=== PATIENT | male | born 1955 | race Caucasian/White ===

== ENCOUNTER → 2016-04-06 | Day surgery (SDC) | payer BC ==
[2016-03-25 11:55] VITALS: Ht 180.3 cm; Wt 134.1 kg
[~2016-04-06] VITALS: Ht 180.3 cm; Wt 134.1 kg
[~2016-04-06] MED LIST: ACT30 PO; ASPCH81X PO; ATOR10TA88 PO; ATROPINE SULFATE 0.1 MG/ML 5ML SYR IV PRN; BUPRTAB51 PO; CANA1TAB3 PO; CEFAZOLIN 2000 MG/60 ML D5W IV SCH; CEFAZOLIN SOD 1 GM VIAL ONE; CEPH500C2 PO; EpHEDrine SULFATE INJ 50 MG/ML AMP IV PRN; FENTANYL CITRATE INJ 50 MCG/1 ML 2 ML VIAL IV PRN; FENTANYL CITRATE INJ 50 MCG/1 ML 2 ML VIAL ONE; HYDR-5688 PO; HYDROCODONE/ACETAMOPHEN 5/325MG TAB PO PRN; HYZ/10015 PO; LACTATED RINGER'S 1000ML 1,000 ML IV SCH; LIDOCAINE HCL 1% 20 ML VIAL ONE; LIDOCAINE HCL 2% 2 ML VIAL (20MG/ML) ONE; LIRA18IN SC; MIDAZOLAM HCL 1 MG/ML 2ML VIAL ONE; ONDANSETRON INJ 2 MG/ML 2 ML VIAL IV PRN; PROPOFOL IV EMULSION 10 MG/ML 20 ML VIAL IV ONE; SERT-234 PO; SODIUM CHLORIDE 0.9% 1000ML 1,000 ML IV SCH; TEMA30CA4 PO
--- NOTE | 2016-04-06 07:54 | History & Physical Bridge - SC ---
H&P Re-Evaluation Bridge Note: I have examined the patient, reviewed the History & Physical and in the interval since the performance of the History & Physical I have noted the following changes of clinical significance: No changes noted ASA 3
--- NOTE | 2016-04-06 09:26 | [facility] Post Operative Brief Note ---
Immediate Operative Summary Operative Date Apr 06, 2016. Pre-Operative Diagnosis Umbilical suture sinus Post-Operative Diagnosis same Procedure(s) Performed Umbilicus Suture Sinus Excision, excision suture foreign body Surgeon Dr Madrid Equipment Monitor Phototypesetting Surgeon(s) 0 Estimated Blood Loss 5 ml Findings 2 prolene sutures Specimens 0 Anesthesia local/ sedation Complication(s) None Disposition Recovery Room / PACU
[2016-04-06 09:28] VITALS: TEMP 36.7
--- NOTE | 2016-04-06 09:28 | Discharge Instructions-SurgCtr ---
Discharge Instructions Visit Reason for Visit: Umbilical Suture Sinus Discharge Discharge Diagnosis / Problem: suture sinus Discharge Goals Goal(s): Decrease discomfort, Improve function, Improve disease control Medications Stopped Medications Name(s): asa stopped about 2 weeks ago. Activity Recommendations Activity Limitations: as noted below Lifting Limitations: no more than 25 pounds (for one week) Exercise/Sports Limitations: until after follow-up appointment May Resume Sexual Activity: when tolerated Shower/Bathe: tomorrow Driving or Machine Use: resume 1 day after discharge SPECIAL CARE INSTRUCTIONS: * Cover incisions and change daily for comfort/drainage. * May use ibuprofen for pain as tolerated. * Expect some swelling and bruising. Call your doctor if: * Temperature above 101 degrees * Pain not relieved by pain medicine ordered * There is increased drainage or redness from any incision * You have any unanswered questions or concerns [phone]. FOLLOW UP VISIT: If not already scheduled, please call the office for a follow-up visit. for next week- some suture removal OFFICE PHONE NUMBER: Dr. Madrid Office Anesthesia . Post Anesthesia Instructions: If you have had General Anesthesia or IV Sedation: * Do not drive today. * Resume driving when surgeon permits. * Do not make important decisions or sign legal documents today. * Call surgeon for: 1. Temperature elevations greater than 101 degrees F. 2. Uncontrollable pain. 3. Excessive bleeding. 4. Persistent nausea and vomiting. 5. Medication intolerance (nausea, vomiting or rash). * For nausea and vomiting use only clear liquids such as: tea, soda, bouillon until nausea subsides, then gradually increase diet as tolerated. * If you have any concerns or questions, call your surgeon's office. If physician is unavailable and it is an emergency, call 911 or go to the nearest emergency room. . Diet Recommendations Home Diet: resume previous diet Procedures Procedures Performed: Umbilicus Suture Sinus Excision, excision suture foreign body Pending Studies Studies pending at discharge: no Medical Emergencies . Who to Call and When: Medical Emergencies: If at any time you feel your situation is an emergency, please call 911 immediately. . Non-Emergent Contact Non-Emergency issues call your: Surgeon . . "Provider Documentation" section prepared by Peyman Madrid.
--- NOTE | 2016-04-06 09:40 | OPERATIVE REPORT ---
DATE OF OPERATION: 04/06/2016 PREOPERATIVE DIAGNOSIS: Suture sinus. POSTOPERATIVE DIAGNOSIS: Same. NAME OF OPERATION: Excision of suture foreign body with suture sinus (excised 6 cm sq., incision 3.5 cm long). STAFF SURGEON: Dr. Madrid. ANESTHESIA: 1% plain lidocaine with sedation. OPERATION AND FINDINGS: PROCEDURE: The patient was brought in the operating room and placed on the operating table in supine position. His abdomen was prepped and draped in usual fashion. The patient had a palpable suture near the umbilicus which was prior incision for laparoscopic cholecystectomy. Incision was made in this area after using 1% plain lidocaine to anesthetize the tissue. An elliptical incision was made around the sinus excising it and then identifying Prolene suture. A second Prolene suture knot was identified 2-3 cm away from this area. These were both removed removing all of the Prolene suture. Deep tissue was reapproximated using 2-0 chromic catgut suture then the skin reapproximated using 4-0 nylon suture. Dressing applied and patient transferred to recovery room in stable condition. I attest to the content of the Intraoperative Record and any orders documented therein. Any exceptions are noted below. MTDD
[2016-04-06 09:54] VITALS: BP 118/79; PULSE 80; O2SAT 95
--- NOTE | 2016-04-06 10:03 | Anesthesia Progress Nt - [facility] ---
Anesthesia Post Op Note Date & Time Apr 06, 2016 at 10:02 Vital Signs Pain Intensity: 0 Vital Signs Past 12 Hours Date Time Temp Pulse Resp B/P Pulse Ox O2 Delivery O2 Flow Rate FiO2 04/06/16 09:54 80 18 118/79 95 Room Air 04/06/16 09:28 36.7 85 20 115/76 95 Room Air 04/06/16 07:56 36.8 94 20 135/88 95 Room Air Notes Mental Status: alert / awake / arousable, participated in evaluation Pt Amnestic to Procedure: Yes Nausea / Vomiting: adequately controlled Pain: adequately controlled Airway Patency, RR, SpO2: stable & adequate BP & HR: stable & adequate Hydration State: stable & adequate Anesthetic Complications: no major complications apparent
== END | disposition home or self-care (01) ==
LOC: X.SURG 07:44
PROVIDERS: ATTEND Surgery
DX: T81.89XA Other complications of procedures, not elsewhere classified, initial encounter (principal); Y83.8 Other surgical procedures as the cause of abnormal reaction of the patient, or of later complication, without mention of misadventure at the time of the procedure; E11.9 Type 2 diabetes mellitus without complications; I10 Essential (primary) hypertension; Z82.49 Family history of ischemic heart disease and other diseases of the circulatory system; Z80.42 Family history of malignant neoplasm of prostate; Z80.1 Family history of malignant neoplasm of trachea, bronchus and lung; Z87.891 Personal history of nicotine dependence

== ENCOUNTER 2022-01-16 19:33 | Inpatient (IN) ==
[2022-01-16] MEDS ORDERED: ONDANSETRON INJ 2 MG/ML 2 ML VIAL IV STA (19:44)
[2022-01-16] MEDS ORDERED: SODIUM CHLORIDE 0.9% 500 ML IV STA (19:44)
[2022-01-16] MEDS ORDERED: SODIUM CHLORIDE 0.9% 1000ML 1,000 ML IV STA (19:44)
--- NOTE | 2022-01-16 20:01 | Emergency Department Note ---
Impression & Plan SBO (small bowel obstruction), Abdominal pain, lower, Nausea & vomiting, Acute constipation ED Provider Note INFORMANT: Patient ED PROVIDER(S): Emile Foreman MD CHIEF COMPLAINT: Abdominal pain PLAN: Disposition: Admitted Condition: Good Outpatient prescription management: none Referral: None MEDICAL DECISION MAKING: Patient presented to the emergency department complaining of abdominal pain a work-up was initiated. He was uncomfortable and was treated with Dilaudid and Zofran. The patient was also hydrated. He underwent CT imaging. He had an unremarkable CBC and troponin. His ECG did not show any ischemia. Chemistry panel revealed hypokalemia. The patient was given IV potassium. CT scan was concerning with a high-grade bowel obstruction. I did consult with general surgery, Dr. Stan Granados. He recommended conservative management with hydration, pain control, and NG tube placement. He will consult on the patient. He did recommend admission to the internal medicine service. NG tube was placed and patient had a significant amount of stomach contents removed. He felt better after this. Consultation was made with Dr. Bryan Don of the [facility] service. Patient was evaluated in the ER for further management. Triage Nursing notes reviewed and agree them. Vital Signs: reviewed and remarkable for mild tachycardia Differential diagnosis: Infections, diverticulitis, UTI, obstruction, mesenteric ischemia, aortic pathology, inflammatory bowel disease, renal colic, PUD, pancreatitis, biliary pathology, hernia, volvulus, constipation, as well as other pathologies. Diagnostics interpreted by me: ECG: Twelve-lead ECG reveals sinus tachycardia 103 bpm. Incomplete right bundle branch block. No ST elevation or depression. No PVCs. Cardiac Monitoring: Cardiac monitoring ordered by me: The patient was placed on continuous cardiac monitoring and observed. It revealed a normal sinus rhythm at 99 beats per minute without ectopy or evidence of dysrhythmia. Imaging studies: CT scan as noted below. Patient also had KUB performed and NG tube appeared to be in the stomach. HPI: The patient is a 66year old male who presents to the Emergency Room with complaints of lower abdominal pain. This started 3 days ago and is persisting. The patient also notes the following associated symptoms, nausea, vomiting, and constipation. Patient was concerned that it may be related to his Ozempic that was started on December 16. He stated he did not have any problems for the initial 4 weeks of that treatment and then his symptoms started all of a sudden 3 days ago. The patient has found no [id number]-[id number] remedies for relieving factors. Current pain is rated as 6/10. Patient notes also feeling very bloated. Pt denies LOC, headache, fevers, chills, diaphoresis, visual changes, neck pain, chest pain, breathing difficulties, back pain, melena, hematochezia, urinary symptoms, numbness, weakness, lymphadenopathy, rash, or other complai nts. ROS: See above HPI for pertinent positives & negatives. A total of 10 systems reviewed and were otherwise negative. PAST MEDICAL HISTORY:See Below , hypertension, diabetes PAST SURGICAL HISTORY:See Below, appendectomy, cholecystectomy FAMILY HISTORY:See Below SOCIAL HISTORY:See Below, HOME MEDICATIONS:See Below ALLERGIES:See Below VITALS:See Below PHYSICAL EXAMINATION: GENERAL: Awake, alert, uncomfortable-appearing, in no distress HENT: Normocephalic, atraumatic. Oropharynx unremarkable. EYES: Normal conjunctiva. Sclera non-icteric. NECK: Inspection normal. Non-tender. Supple. No nuchal rigidity. FROM. No masses. RESPIRATORY: Clear to auscultation. No wheezes. No rales. Normal respiratory effort. CARDIAC: Normal rate. Normal rhythm. No murmurs. No rubs. Extremities warm and well perfused. Pulses equal. No JVD. GI: Soft, mildly-distended. Mild upper and moderate to significant lower tenderness to palpation. No rebound but mild guarding. No masses. RECTAL: Deferred. MUSCULOSKELETAL: Atraumatic. Chest examination reveals no tenderness. The back is symmetrical on inspection without obvious abnormality. There is no CVA tenderness to palpation. No joint edema. LOWER EXTREMITIES: Calves are equal size bilaterally and non-tender. No edema. No discoloration. NEURO: Normal sensorium. No sensory or motor deficits noted. SKIN: No rash or jaundice noted. Emile Foreman MD Past Med/Surg History Medical History ADHD Anxiety Depression Diabetes mellitus, type 2 Hearing deficit Hyperlipidemia Hypertension Sleep apnea CPAP Spinal stenosis Surgical History H/O arthroscopy of left knee X4 H/O umbilical hernia repair History of appendectomy History of cholecystectomy History of colonoscopy History of tonsillectomy and adenoidectomy History of total left knee replacement (TKR) Hx of vasectomy Family History Father Family hx colonic polyps Other No family history of adverse response to anesthesia Social History Smoking Status: Former smoker Second Hand Exposure: No; Hx Alcohol Use: No Hx Substance Use: No Preferred Language: Uzbek Communication Ability: Effective 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 Beliefs That Will Affect Care: None Current Living Situation: Spouse Feels Safe at Home: Yes Assistive Devices: Contacts, CPAP and Hearing Aid - Bilateral Allergies Allergies Allergy/AdvReac Type Severity Reaction Status Date / Time bee venom protein (honey bee) Allergy Severe EXTRA Verified 01/16/22 22:00 SWELLING AT SITES Home Meds Home Medications Medication Instructions Recorded Confirmed aspirin 81 mg tablet,delayed 81 mg PO QAM 11/21/17 01/16/22 release (Marsha Low Dose Aspirin) atorvastatin 10 mg tablet (Lipitor) 10 mg PO QAM 11/21/17 01/16/22 bupropion HCl 300 mg 24 hr tablet, 300 mg PO QAM 11/21/17 01/16/22 extended release (Wellbutrin XL) pioglitazone 30 mg tablet (Actos) 30 mg PO QAM 11/21/17 01/16/22 empagliflozin 10 mg tablet 10 mg PO QAM 10/24/19 01/16/22 (Jardiance) hydrochlorothiazide 25 mg tablet 25 mg PO QAM 10/24/19 01/16/22 losartan 100 mg tablet (Cozaar) 100 mg PO QAM 10/24/19 01/16/22 ndecjxyn-mmp-mwfvm acid 300 1 tab PO QAM 10/24/19 01/16/22 mcg-lycopene 600 mcg-lutein 300 mcg tablet (Centrum Silver Men) temazepam 30 mg capsule (Restoril) 60 mg PO HS 10/24/19 01/16/22 dextroamphetamine-amphetamine 30 30 mg PO QAM 12/08/20 01/16/22 mg tablet (Adderall) insulin glargine 100 unit/mL (3 50 unit subcut PM 10/18/21 11/26/22 mL) subcutaneous pen (Lantus Solostar U-100 Insulin) semaglutide 1 mg/dose (4 mg/3 mL) 1 mg subcut WK 01/16/22 01/16/22 subcutaneous pen injector (Ozempic) sertraline 100 mg tablet 100 mg PO QAM 01/16/22 01/16/22 Results & Data (ED) Vital Signs Vital Signs - 24 hr 01/16/22 19:39 01/16/22 19:34 01/16/22 19:44 Temperature 36.4 C L Temperature Source Temporal Artery Scan Pulse Rate 108 H 99 H Pulse Rate [Apical] 99 H Pulse Rhythm [Apical] Regular Respiratory Rate 20 18 20 Respiratory Effort / Characteristics Non-Labored Spontaneous Non-Labored Respiratory Depth Normal Normal Blood Pressure 119/70 Blood Pressure [Left Arm] 111/62 Blood Pressure Mean 86 Blood Pressure Mean [Left Arm] 78 Blood Pressure Position Sitting Blood Pressure Position [Left Arm] Pulse Oximetry 95 90 90 Oxygen Delivery Method Room Air Room Air Room Air Sepsis Recent Fever Within 48 Hours No Sepsis New/Unexplained Change in Mental Status N/A Sepsis Action Taken by Nursing No Action Required 01/16/22 21:34 01/16/22 23:00 Temperature Temperature Source Pulse Rate Pulse Rate [Apical] 95 H 99 H Pulse Rhythm [Apical] Respiratory Rate 20 20 Respiratory Effort / Characteristics Non-Labored Non-Labored Respiratory Depth Normal Normal Blood Pressure Blood Pressure [Left Arm] 168/88 H 115/67 Blood Pressure Mean Blood Pressure Mean [Left Arm] 114 83 Blood Pressure Position Blood Pressure Position [Left Arm] Sitting Sitting Pulse Oximetry 93 90 Oxygen Delivery Method Room Air Room Air Sepsis Recent Fever Within 48 Hours Sepsis New/Unexplained Change in Mental Status Sepsis Action Taken by Nursing Laboratory Data Result diagrams: 01/16/22 20:05 01/16/22 20:05 Lab Results 01/16/22 01/16/22 01/16/22 Range/Units 20:05 20:05 Unknown WBC 6.92 (4.8-10.8) K/ul RBC 5.33 (4.63-6.08) M/uL Hgb 16.2 (14.0-18.0) g/dl Hct 45.4 (40.1-51.0) % MCV 85.2 (80.0-100.0) fL MCH 30.4 (25.0-34.0) pg MCHC 35.7 (32.0-36.0) g/dL RDW Std Deviation 41.9 (36.4-46.3) fL RDW Coeff of Fidel 13.4 (11.5-14.5) % Plt Count 223 (130-400) K/uL MPV 9.3 L (9.4-12.4) fL Immature Gran % (Auto) 0.4 % Neut % (Auto) 64.9 % Lymph % (Auto) 15.0 % [place] % (Auto) 18.5 % Eos % (Auto) 0.9 % Baso % (Auto) 0.3 % Neut # (Auto) 4.49 (1.4-6.5) K/uL Lymph # (Auto) 1.04 L (1.2-3.4) K/uL [place] # (Auto) 1.28 H (0.24-0.82) K/uL Eos # (Auto) 0.06 (0-0.50) K/uL Baso # (Auto) 0.02 (0-0.2) K/uL Immature Gran # (Auto) 0.03 H (0.00-0.02) K/uL Sodium 137 (136-145) mmol/L Potassium 3.0 L (3.5-5.1) mmol/L Chloride 99 (98-107) mmol/L Carbon Dioxide 27 (21-32) mmol/L Anion Gap 11 (3-11) BUN 19 (6-23) mg/dl Creatinine 0.97 (0.6-1.4) mg/dl Est Cr Clr Drug Dosing 97.1 ml/min Est GFR ( Amer) 92.6 ml/min Est GFR (Non-Af Amer) 79.9 ml/min BUN/Creatinine Ratio 19.6 (10-20) Glucose 132 H (70-99(Fasting)) mg/dl Calcium 9.5 (8.5-10.1) mg/dl Total Bilirubin 0.8 (0.2-1.0) mg/dl AST 18 (13-39) U/L ALT 16 (7-52) U/L Alkaline Phosphatase 77 (34-104) U/L Troponin I High Sens 3.9 (0-20) pg/ml Total Protein 7.0 (6.0-8.3) gm/dl Albumin 4.1 (3.4-5.0) gm/dl Globulin 2.9 (2.5-4.0) gm/dl Albumin/Globulin Ratio 1.4 (0.9-2) Lipase 8 L (11-82) U/L SARS-CoV-2, RNA, NAAT NEGATIVE (NEGATIVE) Administered Medications Hydromorphone HCl (Hydromorphone Inj 0.5 Mg/0.5 Ml Syr) 0.5 mg IV Q15M PRN PRN Reason: Pain Stop: 01/30/22 19:57 Last Admin: 01/16/22 23:33 Dose: 0.5 mg Documented By: Admin: 01/16/22 20:14 Dose: 0.5 mg Documented By: MILAGROS Sodium Chloride (Nss 1000ml) 1,000 mls @ 125 mls/hr IV .Q8H STA Stop: 01/17/22 03:43 Last Admin: 01/16/22 20:12 Dose: 125 mls/hr Documented By: MILAGROS Discontinued Medications Sodium Chloride (Nss) 500 mls @ 999 mls/hr IV .Q31M STA Stop: 01/16/22 20:14 Last Infusion: 01/16/22 21:39 Dose: 0 mls/hr Documented By: Admin: 01/16/22 20:46 Dose: 999 mls/hr Documented By: MILAGROS Potassium Chloride (K Judson / Wtr) 10 meq in 100 mls @ 100 mls/hr IV Q1H [facility]; Protocol Stop: 01/16/22 23:59 Last Infusion: 01/17/22 00:25 Dose: 0 mls/hr Documented By: Admin: 01/16/22 23:31 Dose: 100 mls/hr Documented By: Infusion: 01/16/22 23:30 Dose: 0 mls/hr Documented By: Admin: 01/16/22 22:20 Dose: 100 mls/hr Documented By: MILAGROS Ondansetron HCl (Ondansetron Inj 2 Mg/Ml 2 Ml Vial) 4 mg IV NOW STA Stop: 01/16/22 19:45 Last Admin: 01/16/22 20:12 Dose: 4 mg Documented By: MILAGROS Imaging Data Radiologist's Impression: Abdomen/Pelvis CT 01/16/22 19:44 CT SCAN OF THE ABDOMEN AND PELVIS WITHOUT IV CONTRAST CLINICAL HISTORY: Vomiting. COMPARISON STUDY: Abdominal CT dated 04/14/2011. TECHNIQUE: CT scan of the abdomen and pelvis is performed from the lung bases to the proximal femora. Images are reviewed in the axial, sagittal, and coronal planes. IV contrast was not administered for this examination. Note that the examination is suboptimal without IV contrast. A dose lowering technique was utilized adhering to the principles of ALARA. CT DOSE: 1746.08 mGy.cm FINDINGS: Lung bases: The heart is normal in size and without pericardial effusion. The coronary arteries are densely calcified. The lung bases are clear noted dependent atelectasis. There is a tiny hiatal hernia. Liver: The unenhanced liver is normal in size, contour, and attenuation. There is no intrahepatic biliary ductal dilatation. Gallbladder: The gallbladder appears surgically absent. There are numerous stones within a cystic duct remnant. Spleen: Normal in size and attenuation. Pancreas: Unremarkable. Adrenal glands: Unremarkable. Kidneys: The unenhanced kidneys demonstrate mild cortical atrophy and are without hydronephrosis. There are no renal calculi identified. There is no evidence of contour deforming renal mass lesion. Abdominal vasculature: The abdominal aorta is normal in course and caliber noting moderate to advanced atherosclerotic calcification. Bowel: The proximal small bowel loops are dilated and fluid-filled, measuring up to 5.5 cm in diameter. A transition point is identified in the midabdomen on image #220. The distal small bowel is decompressed, and the appearance is consistent with a small bowel obstruction. There is trace interloop fluid. No focally thick-walled bowel loops are identified. There is no pneumatosis intestinalis or portal venous gas. There are scattered colonic diverticula without CT evidence of acute diverticulitis. Mild fecal retention is noted throughout the colon. The appendix is not identified and reported surgically absent. Peritoneum: There is no intraperitoneal free air or abdominal ascites. Lymphadenopathy: None. Pelvic viscera: The prostate gland is mildly enlarged and heterogeneous noting median lobe hypertrophy. The bladder wall appears thickened/trabeculated indicating chronic outlet obstruction. There are small bilateral fat-containing inguinal hernias. Skeletal structures: The skeletal structures are osteopenic. There is mild to moderate lumbosacral spondylosis. No lytic or blastic lesions are seen. IMPRESSION: 1. High-grade small bowel obstruction. A transition point is seen in the midabdomen and this is likely related to adhesions. 2. Intraloop fluid is noted. There is no intraperitoneal free air, pneumatosis intestinalis, or portal venous gas. No focally thick-walled bowel loops are identified. 3. There are numerous gallstones present within a cystic duct remnant. 4. Advanced coronary artery calcification. 5. Additional findings as above. ACT 112: Negative or not required by law. Electronically signed by: Britton Palmer M.D. 01/16/2022 9:18 PM KUB X-Ray 01/16/22 22:08 KUB CLINICAL HISTORY: Enteric tube placement. FINDINGS: An AP, portable, supine view of the lower chest and upper abdomen is correlated with abdominal CT performed the same day 01/16/2022. An enteric tube has been placed. The tip of the catheter projects below the diaphragm over the proximal stomach. Dilated gas-filled loops of small bowel in the upper abdomen indicate persistent obstruction. Cholecystectomy clips are seen in the right upper quadrant. The lung bases are clear as visualized noting dependent atelectasis. IMPRESSION: 1. Enteric tube placement as above. 2. Persistent small bowel obstruction. Electronically signed by: Britton Palmer M.D. 01/16/2022 11:15 PM Discharge Plan Visit Data Chief Complaint: Vomiting Stated Complaint: VOMITING FOR LAST COUPLE OF DAY'S, ABD PAIN ED Provider: Emile Foreman Discharge Problem: SBO (small bowel obstruction), Abdominal pain, lower, Nausea & vomiting, Acute constipation Discharge Instructions Interventions: ED Discharge Assessment Last Done: 01/17/22 00:15 Forms Stand Alone Forms: [facility] Prescriptions Prescriptions: No Action losartan [Cozaar] 100 mg tablet 100 mg PO QAM hydrochlorothiazide 25 mg tablet 25 mg PO QAM Jardiance 10 mg tablet 10 mg PO QAM Centrum Silver Men 300-600-300 mcg tablet 1 tab PO QAM temazepam [Restoril] 30 mg capsule 60 mg PO HS atorvastatin [Lipitor] 10 mg Tablet 10 mg PO QAM aspirin [Marsha Low Dose Aspirin] 81 mg Tablet,Delayed Release (Dr/Ec) 81 mg PO QAM pioglitazone [Actos] 30 mg Tablet 30 mg PO QAM bupropion HCl [Wellbutrin XL] 300 mg Tablet Extended Release 24 Hr 300 mg PO QAM dextroamphetamine-amphetamine [Adderall] 30 mg Tablet 30 mg PO QAM insulin glargine [Lantus Solostar U-100 Insulin] 100 unit/mL (3 mL) Insulin Pen 50 unit SUBCUT PM Ozempic 1 mg/dose (4 mg/3 mL) pen injector 1 mg SUBCUT WK Rx Instructions: tuesday sertraline 100 mg tablet 100 mg PO QAM Referrals Referrals: Isiah Webster [Primary Care Provider] -
[2022-01-16] MEDS: HYDROmorphone INJ 0.5 MG/0.5 ML SYR IV PRN ×2 (20:14→23:33)
[2022-01-16 20:36] LABS: Basophils # (auto) 0.02 K/uL (0-0.2); Basophils % (auto) 0.3 %; Eosinophils # (auto) 0.06 K/uL (0-0.50); Eosinophils % (auto) 0.9 %; Hematocrit (blood only) 45.4 % (40.1-51.0); Hemoglobin 16.2 g/dl (14.0-18.0); Immature Granulocytes # (auto) 0.03 K/uL (0.00-0.02); Immature Granulocytes % (auto) 0.4 %; Lymphocytes # (auto) 1.04 K/uL (1.2-3.4); Mean Corpuscular Hemoglobin 30.4 pg (25.0-34.0); Mean Corpuscular Hgb Conc 35.7 g/dL (32.0-36.0); Mean Corpuscular Volume 85.2 fL (80.0-100.0); Mean Platelet Volume 9.3 fL (9.4-12.4); Monocytes # (auto) 1.28 K/uL (0.24-0.82); Monocytes % (auto) 18.5 %; Neutrophils # (auto) 4.49 K/uL (1.4-6.5); Neutrophils % (auto) 64.9 %; Platelet Count 223 K/uL (130-400); RDW Coefficient of Variation 13.4 % (11.5-14.5); RDW Standard Deviation 41.9 fL (36.4-46.3); Red Blood Count 5.33 M/uL (4.63-6.08); White Blood Count 6.92 K/ul (4.8-10.8)
[2022-01-16 20:54] LABS: Troponin I High Sensitivity 3.9 pg/ml (0-20)
[2022-01-16 21:01] LABS: Albumin Globulin Ratio 1.4 (0.9-2); Albumin Level 4.1 gm/dl (3.4-5.0); BUN Creatinine Ratio 19.6 (10-20); Bilirubin,Total 0.8 mg/dl (0.2-1.0); Calcium 9.5 mg/dl (8.5-10.1); Creatinine Clr Calc Pharmacy 97.1 ml/min; Est GFR (African American) 92.6 ml/min; Est GFR (Non-African American) 79.9 ml/min; Globulin 2.9 gm/dl (2.5-4.0)
--- NOTE | 2022-01-16 21:21 | CT Scan Report ---
CT SCAN OF THE ABDOMEN AND PELVIS WITHOUT IV CONTRAST CLINICAL HISTORY: Vomiting. COMPARISON STUDY: Abdominal CT dated 04/14/2011. TECHNIQUE: CT scan of the abdomen and pelvis is performed from the lung bases to the proximal femora. Images are reviewed in the axial, sagittal, and coronal planes. IV contrast was not administered for this examination. Note that the examination is suboptimal without IV contrast. A dose lowering techn ique was utilized adhering to the principles of ALARA. CT DOSE: 1746.08 mGy.cm FINDINGS: Lung bases: The heart is normal in size and without pericardial effusion. The coronary arteries are d ensely calcified. The lung bases are clear noted dependent atelectasis. There is a tiny hiatal hernia . Liver: The unenhanced liver is normal in size, contour, and attenuation. There is no intrahepatic sj iary ductal dilatation. Gallbladder: The gallbladder appears surgically absent. There are numerous stones within a cystic [place] t remnant. Spleen: Normal in size and attenuation. Pancreas: Unremarkable. Adrenal glands: Unremarkable. Kidneys: The unenhanced kidneys demonstrate mild cortical atrophy and are without hydronephrosis. The re are no renal calculi identified. There is no evidence of contour deforming renal mass lesion. Abdominal vasculature: The abdominal aorta is normal in course and caliber noting moderate to advance d atherosclerotic calcification. Bowel: The proximal small bowel loops are dilated and fluid-filled, measuring up to 5.5 cm in diamete r. A transition point is identified in the midabdomen on image #220. The distal small bowel is decomp ressed, and the appearance is consistent with a small bowel obstruction. There is trace interloop flu id. No focally thick-walled bowel loops are identified. There is no pneumatosis intestinalis or patrica l venous gas. There are scattered colonic diverticula without CT evidence of acute diverticulitis. Mi ld fecal retention is noted throughout the colon. The appendix is not identified and reported surgic ally absent. Peritoneum: There is no intraperitoneal free air or abdominal ascites. Lymphadenopathy: None. Pelvic viscera: The prostate gland is mildly enlarged and heterogeneous noting median lobe hypertroph y. The bladder wall appears thickened/trabeculated indicating chronic outlet obstruction. There are s mall bilateral fat-containing inguinal hernias. Skeletal structures: The skeletal structures are osteopenic. There is mild to moderate lumbosacral sp ondylosis. No lytic or blastic lesions are seen. IMPRESSION: 1. High-grade small bowel obstruction. A transition point is seen in the midabdomen and this is likel y related to adhesions. 2. Intraloop fluid is noted. There is no intraperitoneal free air, pneumatosis intestinalis, or patrica l venous gas. No focally thick-walled bowel loops are identified. 3. There are numerous gallstones present within a cystic duct remnant. 4. Advanced coronary artery calcification. 5. Additional findings as above. ACT 112: Negative or not required by law. Electronically signed by: Britton Plamer M.D. 01/16/2022 9:18 PM
[2022-01-16] MEDS: POTASSIUM CHLORIDE / WTR 10 MEQ/100 ML PLCT IV SCH ×2 (22:20→23:31)
--- NOTE | 2022-01-16 22:54 | History & Physical Report ---
Date of Service January 16, 2022 Assessment & Plan (1) SBO (small bowel obstruction): Plan: High-grade SBO/transition point mid abdomen- NPO NG tube to low intermittent suction Zofran 4 mg IV every 6 hours as needed Famotidine 20 mg IV every 12 hours NSS + KCl 20 mEq at 100 mils per hour Acetaminophen 1 g IV every 8 hours as needed mild pain or fever Toradol 15 mg IV every 6 hours as needed moderate pain (2) Hypokalemia: Plan: Potassium 3.0 upon admission Received 2K riders while in the ED NSS + KCl 20 mEq at 100 mils per hour Check a magnesium level Repeat laboratories in a.m. (3) ADHD: Plan: Hold Adderall while n.p.o. (4) Sleep apnea: Plan: CPAP at bedtime as needed (5) Depression: Plan: Depression/anxiety/insomnia- While n.p.o., hold bupropion, sertraline and temazepam (6) Anxiety: Plan: See above (7) Diabetes mellitus, type 2: Plan: While n.p.o., hold empagliflozin, pioglitazone and Ozempic Reduce glargine from 50 units to 20 units subcu in the evening, starting 01/17 (8) Hypertension: Plan: Hold HCTZ, losartan. Follow blood pressure and heart rate, and Rx either Lopressor IV or hydralazine IV as blood pressure requires (9) Hyperlipidemia: Plan: Hold atorvastatin History of Present Illness Chief Complaint: The patient presents to the emergency department with complaint of abdominal pain that has been persistent over the past several days, which initially presented with an episode of vomiting, which then briefly resolved, but then resumed over the past few days. His oral intake has been significantly decreased, and today he only had a piece of toast. Due to the persistence and worsening of this pain with nausea and vomiting, he presents to the ED for assessment. He has had 2 previous intra-abdominal surgeries, a cholecystectomy and an appendectomy. He denies any change in dietary intake prior to the symptoms developing. Primary Care Provider: Isiah Webster The patient is a 66-year-old male with a past medical history including colon polyps, spinal stenosis, acute appendicitis requiring surgery, acute gastroenteritis, mild cognitive impairment, ADHD, sleep apnea, hyperlipidemia, depression, diabetes mellitus, hypertension, anxiety and insomnia. He presents to the emergency department with persistent abdominal pain, nausea and vomiting as noted above. Work-up in the emergency department included a CT scan of abdomen and pelvis, which showed a high-grade small bowel obstruction with transition point in the mid abdomen. Allergies Allergy/AdvReac Type Severity Reaction Status Date / Time bee venom protein (honey bee) Allergy Severe EXTRA Verified 01/16/22 22:00 SWELLING AT SITES Home Medications Medication Instructions Recorded Confirmed Type aspirin 81 mg tablet,delayed 81 mg PO QAM 11/21/17 01/16/22 History release (Marsha Low Dose Aspirin) atorvastatin 10 mg tablet (Lipitor) 10 mg PO QAM 11/21/17 01/16/22 History bupropion HCl 300 mg 24 hr tablet, 300 mg PO QAM 11/21/17 01/16/22 History extended release (Wellbutrin XL) pioglitazone 30 mg tablet (Actos) 30 mg PO QAM 11/21/17 01/16/22 History empagliflozin 10 mg tablet 10 mg PO QAM 10/24/19 01/16/22 History (Jardiance) hydrochlorothiazide 25 mg tablet 25 mg PO QAM 10/24/19 01/16/22 History losartan 100 mg tablet (Cozaar) 100 mg PO QAM 10/24/19 01/16/22 History erflldrf-kig-mwphd acid 300 1 tab PO QAM 10/24/19 01/16/22 History mcg-lycopene 600 mcg-lutein 300 mcg tablet (Centrum Silver Men) temazepam 30 mg capsule (Restoril) 60 mg PO HS 10/24/19 01/16/22 History dextroamphetamine-amphetamine 30 30 mg PO QAM 12/08/20 01/16/22 History mg tablet (Adderall) insulin glargine 100 unit/mL (3 50 unit subcut PM 12/08/20 01/16/22 History mL) subcutaneous pen (Lantus Solostar U-100 Insulin) semaglutide 1 mg/dose (4 mg/3 mL) 1 mg subcut WK 01/16/22 01/16/22 History subcutaneous pen injector (Ozempic) sertraline 100 mg tablet 100 mg PO QAM 01/16/22 01/16/22 History Past Med/Surg History Medical History (Updated 01/17/22 @ 02:32 by Bryan Don MD) ADHD Anxiety Depression Diabetes mellitus, type 2 Hearing deficit Hyperlipidemia Hypertension Sleep apnea CPAP Spinal stenosis Surgical History H/O arthroscopy of left knee X4 H/O umbilical hernia repair History of appendectomy History of cholecystectomy History of colonoscopy History of tonsillectomy and adenoidectomy History of total left knee replacement (TKR) Hx of vasectomy Family History Father Family hx colonic polyps Other No family history of adverse response to anesthesia Social History Smoking Status: Never smoker Second Hand Exposure: No; Do You Dip or Chew Tobacco: No; Tobacco Cessation Education Requested by Patient: No Hx Alcohol Use: No Hx Substance Use: No Preferred Language: Citizen Of [place] Communication Ability: Effective Leaflet Distributor Required: No Beliefs That Will Affect Care: None Current Living Situation: Spouse Other Information That Helps Us Care for You: No Feels Safe at Home: Yes Safety Concerns: Feels Safe At This Time Assistive Devices: Hearing Aid - Bilateral Review of Systems Review of Systems: The patient denies chest pain, palpitations, shortness of breath, dyspnea on exertion, cough, lower extremity swelling, sore throat, fever s, chills, sweats, blood in urine or stool, dysuria, urinary frequency or urgency, lightheadedness, dizziness, headache, memory loss, loss of consciousness, rash, abnormal bruising or bleeding, imbalance, focal weakness, numbness or tingling in arms or legs, generalized arthralgias or myalgias, back or neck pain, or night sweats. The review of systems is otherwise negative other than for that already noted above, and at least 10 systems have been reviewed. Physical Exam Physical Exam: The patient is awake, alert and oriented 3, well developed and well nourished, normocephalic and atraumatic, lying in bed and in no acute distress. HEENT--PERRL, EOMI, mucous membranes and oropharynx dry. Neck--supple. No JVD. No bruits. Thyroid normal, trachea midline, no adenopathy. Heart--normal S1 and S2. No murmurs, rubs or gallops. Lungs--clear bilaterally, no respiratory distress, no accessory muscle use. Abdomen--few high-pitched bowel sounds. Moderately distended. Mildly tympanitic. No pain after Dilaudid IV Extremities--no cyanosis or clubbing. No edema. Dermatologic--normal skin turgor, normal color, no abnormal lymph nodes, no rash. Neurologic--cranial nerves II through XII grossly intact. Rheumatologic--normal range of motion. Psychiatric--normal affect. Results & Data Results & Data ([facility]) Vital Signs (Past 12 Hours) Vital Signs Temp Pulse Pulse Resp BP BP Pulse Ox 01/16/22 21:34 95 H 20 168/88 H 93 01/16/22 19:44 99 H 20 90 01/16/22 19:34 99 H 18 111/62 90 01/16/22 19:39 36.4 C L 108 H 20 119/70 95 O2 Del Method 01/16/22 21:34 Room Air 01/16/22 19:44 Room Air 01/16/22 19:34 Room Air 01/16/22 19:39 Room Air Laboratory Results Laboratory Results WBC 6.92 K/ul (4.8-10.8) 01/16/22 20:05 RBC 5.33 M/uL (4.63-6.08) 01/16/22 20:05 Hgb 16.2 g/dl (14.0-18.0) 01/16/22 20:05 Hct 45.4 % (40.1-51.0) 01/16/22 20:05 MCV 85.2 fL (80.0-100.0) 01/16/22 20:05 MCH 30.4 pg (25.0-34.0) 01/16/22 20:05 MCHC 35.7 g/dL (32.0-36.0) 01/16/22 20:05 RDW Std Deviation 41.9 fL (36.4-46.3) 01/16/22 20:05 RDW Coeff of Fidel 13.4 % (11.5-14.5) 01/16/22 20:05 Plt Count 223 K/uL (130-400) 01/16/22 20:05 MPV 9.3 fL (9.4-12.4) L 01/16/22 20:05 Immature Gran % (Auto) 0.4 % 01/16/22 20:05 Neut % (Auto) 64.9 % 01/16/22 20:05 Lymph % (Auto) 15.0 % 01/16/22 20:05 [place] % (Auto) 18.5 % 01/16/22 20:05 Eos % (Auto) 0.9 % 01/16/22 20:05 Baso % (Auto) 0.3 % 01/16/22 20:05 Neut # (Auto) 4.49 K/uL (1.4-6.5) 01/16/22 20:05 Lymph # (Auto) 1.04 K/uL (1.2-3.4) L 01/16/22 20:05 [place] # (Auto) 1.28 K/uL (0.24-0.82) H 01/16/22 20:05 Eos # (Auto) 0.06 K/uL (0-0.50) 01/16/22 20:05 Baso # (Auto) 0.02 K/uL (0-0.2) 01/16/22 20:05 Immature Gran # (Auto) 0.03 K/uL (0.00-0.02) H 01/16/22 20:05 Sodium 137 mmol/L (136-145) 01/16/22 20:05 Potassium 3.0 mmol/L (3.5-5.1) L 01/16/22 20:05 Chloride 99 mmol/L (98-107) 01/16/22 20:05 Carbon Dioxide 27 mmol/L (21-32) 01/16/22 20:05 Anion Gap 11 (3-11) 01/16/22 20:05 BUN 19 mg/dl (6-23) 01/16/22 20:05 Creatinine 0.97 mg/dl (0.6-1.4) 01/16/22 20:05 Est Cr Clr Drug Dosing 97.1 ml/min 01/16/22 20:05 Est GFR ( Amer) 92.6 ml/min 01/16/22 20:05 Est GFR (Non-Af Amer) 79.9 ml/min 01/16/22 20:05 BUN/Creatinine Ratio 19.6 (10-20) 01/16/22 20:05 Glucose 132 mg/dl (70-99(Fasting)) H 01/16/22 20:05 Calcium 9.5 mg/dl (8.5-10.1) 01/16/22 20:05 Total Bilirubin 0.8 mg/dl (0.2-1.0) 01/16/22 20:05 AST 18 U/L (13-39) 01/16/22 20:05 ALT 16 U/L (7-52) 01/16/22 20:05 Alkaline Phosphatase 77 U/L (34-104) 01/16/22 20:05 Troponin I High Sens 3.9 pg/ml (0-20) 01/16/22 20:05 Total Protein 7.0 gm/dl (6.0-8.3) 01/16/22 20:05 Albumin 4.1 gm/dl (3.4-5.0) 01/16/22 20:05 Globulin 2.9 gm/dl (2.5-4.0) 01/16/22 20:05 Albumin/Globulin Ratio 1.4 (0.9-2) 01/16/22 20:05 Lipase 8 U/L (11-82) L 01/16/22 20:05 SARS-CoV-2, RNA, NAAT NEGATIVE (NEGATIVE) 01/16/22 Unknown Impressions Abdomen/Pelvis CT 01/16/22 19:44 CT SCAN OF THE ABDOMEN AND PELVIS WITHOUT IV CONTRAST CLINICAL HISTORY: Vomiting. COMPARISON STUDY: Abdominal CT dated 04/14/2011. TECHNIQUE: CT scan of the abdomen and pelvis is performed from the lung bases to the proximal femora. Images are reviewed in the axial, sagittal, and coronal planes. IV contrast was not administered for this examination. Note that the examination is suboptimal without IV contrast. A dose lowering technique was utilized adhering to the principles of ALARA. CT DOSE: 1746.08 mGy.cm FINDINGS: Lung bases: The heart is normal in size and without pericardial effusion. The coronary arteries are densely calcified. The lung bases are clear noted dependent atelectasis. There is a tiny hiatal hernia. Liver: The unenhanced liver is normal in size, contour, and attenuation. There is no intrahepatic biliary ductal dilatation. Gallbladder: The gallbladder appears surgically absent. There are numerous stones within a cystic duct remnant. Spleen: Normal in size and attenuation. Pancreas: Unremarkable. Adrenal glands: Unremarkable. Kidneys: The unenhanced kidneys demonstrate mild cortical atrophy and are without hydronephrosis. There are no renal calculi identified. There is no evidence of contour deforming renal mass lesion. Abdominal vasculature: The abdominal aorta is normal in course and caliber noting moderate to advanced atherosclerotic calcification. Bowel: The proximal small bowel loops are dilated and fluid-filled, measuring up to 5.5 cm in diameter. A transition point is identified in the midabdomen on image #220. The distal small bowel is decompressed, and the appearance is consistent with a small bowel obstruction. There is trace interloop fluid. No focally thick-walled bowel loops are identified. There is no pneumatosis intestinalis or portal venous gas. There are scattered colonic diverticula without CT evidence of acute diverticulitis. Mild fecal retention is noted throughout the colon. The appendix is not identified and reported surgically absent. Peritoneum: There is no intraperitoneal free air or abdominal ascites. Lymphadenopathy: None. Pelvic viscera: The prostate gland is mildly enlarged and heterogeneous noting median lobe hypertrophy. The bladder wall appears thickened/trabeculated indicating chronic outlet obstruction. There are small bilateral fat-containing inguinal hernias. Skeletal structures: The skeletal structures are osteopenic. There is mild to moderate lumbosacral spondylosis. No lytic or blastic lesions are seen. IMPRESSION: 1. High-grade small bowel obstruction. A transition point is seen in the midabdomen and this is likely related to adhesions. 2. Intraloop fluid is noted. There is no intraperitoneal free air, pneumatosis intestinalis, or portal venous gas. No focally thick-walled bowel loops are identified. 3. There are numerous gallstones present within a cystic duct remnant. 4. Advanced coronary artery calcification. 5. Additional findings as above. ACT 112: Negative or not required by law. Electronically signed by: Britton Palmer M.D. 01/16/2022 9:18 PM KUB X-Ray 01/16/22 22:08 KUB CLINICAL HISTORY: Enteric tube placement. FINDINGS: An AP, portable, supine view of the lower chest and upper abdomen is correlated with abdominal CT performed the same day 01/16/2022. An enteric tube has been placed. The tip of the catheter projects below the diaphragm over the proximal stomach. Dilated gas-filled loops of small bowel in the upper abdomen indicate persistent obstruction. Cholecystectomy clips are seen in the right upper quadrant. The lung bases are clear as visualized noting dependent atelectasis. IMPRESSION: 1. Enteric tube placement as above. 2. Persistent small bowel obstruction. Electronically signed by: Britton Palmer M.D. 01/16/2022 11:15 PM Code Status & VTE Plan Code Status Full code
--- NOTE | 2022-01-16 23:17 | XRay Report ---
KUB CLINICAL HISTORY: Enteric tube placement. FINDINGS: An AP, portable, supine view of the lower chest and upper abdomen is correlated with abdomi nal CT performed the same day 01/16/2022. An enteric tube has been placed. The tip of the catheter pr ojects below the diaphragm over the proximal stomach. Dilated gas-filled loops of small bowel in the upper abdomen indicate persistent obstruction. Cholecystectomy clips are seen in the right upper quad rant. The lung bases are clear as visualized noting dependent atelectasis. IMPRESSION: 1. Enteric tube placement as above. 2. Persistent small bowel obstruction. Electronically signed by: Britton Palmer M.D. 01/16/2022 11:15 PM
[2022-01-17] MEDS ORDERED: CARBOHYDRATES FOR HYPOGLYCEMIA PO PRN (00:41)
[2022-01-17] MEDS ORDERED: GLUCOSE 40% GEL 15 GM TUBE PO PRN (00:41)
[2022-01-17] MEDS ORDERED: GLUCAGON FOR INJ 1 MG VIAL SQ PRN (00:41)
[2022-01-17] MEDS ORDERED: DEXTROSE 50% 50 ML SYRINGE IV PRN (00:41)
[2022-01-17] MEDS ORDERED: GLUCOSE 10 TAB/TUBE PO PRN (00:41)
[2022-01-17] MEDS ORDERED: ONDANSETRON INJ 2 MG/ML 2 ML VIAL IV PRN (00:41)
[2022-01-17] MEDS: NSS + 20MEQ KCL 20 MEQ/1,000 ML BAG IV SCH ×3 (01:12→17:01)
[2022-01-17] MEDS ORDERED: KETOROLAC TROMETHAMINE 15 MG/ML VIAL IV PRN (02:09)
[2022-01-17] MEDS ORDERED: HYDROmorphone INJ 0.5 MG/0.5 ML SYR IV PRN (02:11)
[2022-01-17] MEDS: ACETAMINOPHEN 1,000 MG/100 ML VIAL IV SCH ×3 (02:33→17:48)
--- NOTE | 2022-01-17 02:43 | Billing Data ---
Date of Service January 17, 2022 Coding Level of Care Code 38800 Initial Inpt Care Lvl 3
[2022-01-17 06:14] LABS: Basophils # (auto) 0.03 K/uL (0-0.2); Basophils % (auto) 0.5 %; Eosinophils # (auto) 0.14 K/uL (0-0.50); Eosinophils % (auto) 2.4 %; Hematocrit (blood only) 42.6 % (40.1-51.0); Hemoglobin 14.6 g/dl (14.0-18.0); Immature Granulocytes # (auto) 0.04 K/uL (0.00-0.02); Immature Granulocytes % (auto) 0.7 %; Lymphocytes # (auto) 1.87 K/uL (1.2-3.4); Lymphocytes % (auto) 32.4 %; Mean Corpuscular Hemoglobin 30.5 pg (25.0-34.0); Mean Corpuscular Hgb Conc 34.3 g/dL (32.0-36.0); Mean Corpuscular Volume 89.1 fL (80.0-100.0); Mean Platelet Volume 9.3 fL (9.4-12.4); Monocytes # (auto) 1.09 K/uL (0.24-0.82); Monocytes % (auto) 18.9 %; Neutrophils % (auto) 45.1 %; Platelet Count 216 K/uL (130-400); RDW Coefficient of Variation 13.6 % (11.5-14.5); RDW Standard Deviation 44.2 fL (36.4-46.3); Red Blood Count 4.78 M/uL (4.63-6.08); White Blood Count 5.77 K/ul (4.8-10.8)
[2022-01-17 06:26] LABS: Appearance Urine Clear (Clear); Bacteria Urine Automated Negative (Negative); Blood Urine Negative (Negative); Color Urine Dark Yellow; Glucose Urine UA 3+ (Negative); Ketones Urine 3+ (Negative); Leukocyte Esterase Urine Negative (Negative); Nitrite Urine Negative (Negative); Protein Urine Trace (Negative); RBC Urine Automated 0-4 /hpf (0-4); Specific Gravity Urine 1.038 (1.000-1.030); Urobilinogen Urine Negative (Negative)
[2022-01-17] MEDS: INSULIN ASPART PER UNIT SC SCH ×3 (06:26→18:35)
[2022-01-17 06:34] LABS: Bilirubin Urine 1+ (Negative)
[2022-01-17 06:35] LABS: Albumin Globulin Ratio 1.5 (0.9-2); Albumin Level 3.7 gm/dl (3.4-5.0); Bilirubin,Total 0.6 mg/dl (0.2-1.0); Calcium 8.6 mg/dl (8.5-10.1); Creatinine Clr Calc Pharmacy 98.3 ml/min; Est GFR (African American) 89.2 ml/min; Globulin 2.5 gm/dl (2.5-4.0); Potassium 2.8 mmol/L (3.5-5.1); Total Protein 6.2 gm/dl (6.0-8.3)
--- NOTE | 2022-01-17 07:07 | Electrocardiogram Report ---
Test Reason : Blood Pressure : / mmHG Vent. Rate : 104 BPM Atrial Rate : 104 BPM P-R Int : 178 ms QRS Dur : 102 ms QT Int : 362 ms P-R-T Axes : 022 -25 030 degrees QTc Int : 476 ms Sinus tachycardia Incomplete right bundle branch block Poor R wave progression, consider anterior UT vs. lead placement vs. LVH Borderline ECG When compared with ECG of 06-JUL-2021 01:16, No significant change was found Confirmed by Joseph Montalvo ([id number]) on 01/17/2022 7:07:35 AM Referred By: REFERRED SELF Confirmed By:Peng Montalvo
[2022-01-17] MEDS: FAMOTIDINE 20 MG in SYRINGE 3 ML IV SCH ×2 (08:04→20:47)
[2022-01-17] MEDS: POTASSIUM CHLORIDE / WTR 10 MEQ/100 ML PLCT IV SCH ×4 (09:10→12:18)
--- NOTE | 2022-01-17 13:13 | Hospitalist Progress Note ---
Date of Service January 17, 2022 Assessment & Plan (1) SBO (small bowel obstruction): Plan: High-grade SBO/transition point mid abdomen- NPO Continue NG tube to low intermittent suction -we will consider clamping this tomorrow morning Zofran 4 mg IV every 6 hours as needed Famotidine 20 mg IV every 12 hours We will switch fluids to half-normal saline with KCl 20 meq @ 150 ml/hr which is closer to his maintenance rate given his weight Acetaminophen 1 g IV every 8 hours as needed mild pain or fever Toradol 15 mg IV every 6 hours as needed moderate pain (2) Hypokalemia: Plan: Potassium 3.0 upon admission Received x2 K riders while in the ED Repeat potassium this morning 2.8. KCl 10 meq IV x4 ordered Intravenous fluids as above (3) ADHD: Plan: Hold Adderall while n.p.o. (4) Sleep apnea: Plan: CPAP at bedtime as needed (5) Depression: Plan: Depression/anxiety/insomnia- While n.p.o., hold bupropion, sertraline and temazepam (6) Anxiety: Plan: See above (7) Diabetes mellitus, type 2: Plan: HbA1c pending While n.p.o., hold empagliflozin, pioglitazone and Ozempic Reduce glargine from 50 units to 20 units subcu in the evening, starting 01/17 (8) Hypertension: Plan: Hold HCTZ, losartan. Follow blood pressure and heart rate, and Rx either Lopressor IV or hydralazine IV as blood pressure requires (9) Hyperlipidemia: Plan: Hold atorvastatin Admission and Anticipated Discharge Date Admission Date: January 16, 2022 Subjective Reports his mouth is very dry but otherwise feeling much better since admission. Abdominal pain is significantly improved. No nausea or vomiting. He is passing very minimal flatus. Never had this happen before but has had abdominal surgeries including appendectomy and cholecystectomy. He reports the G-tube drain has been changed 3 times since coming in. Currently has 100ml drainage of green fluid. Updated his over the phone. Review of Systems Review of Systems: All systems reviewed & are unremarkable except as noted in Subjective Physical Exam Constitutional: WD/WN, vitals as above Respiratory: normal respiratory effort, lungs clear to auscultation Cardiovascular: RRR, no murmur, no edema Gastrointestinal (Abdomen): Inspection/Auscultation: + hypoactive bowel sounds (Minimal); abdomen not distended Percussion/Palpation: abdomen soft; abdomen nontender, no guarding and abdomen not rigid Neurologic: moves all extremities and awake; not confused Psychiatric: A+Ox3, euthymic affect Results & Data Results & Data ([facility]) Vital Signs (Past 12 Hours) Vital Signs Temp Pulse Resp BP Pulse Ox O2 Del Method 01/17/22 07:27 36.7 C 90 16 118/71 92 Room Air PG Care Time/CCT Total # of Minutes Spent Total Time Spent with Patient: Total time spent is greater than 50% in coordination of care (as documented) at patient's floor/unit and/or counseling patient: Coding Level of Care Code 63527 Subseq Hosp Care Lvl 2 Diagnoses SBO (small bowel obstruction) K56.609 Hypokalemia E87.6 ADHD F90.9 Sleep apnea G47.30 Depression F32.9 Anxiety F41.9 Diabetes mellitus, type 2 E11.9 Hypertension I10 Hyperlipidemia E78.5
[2022-01-17] MEDS ORDERED: ACETAMINOPHEN 1,000 MG/100 ML VIAL IV PRN (19:03)
[2022-01-17] MEDS: D5W AND 1/2NSS + 20MEQ KCL 20 MEQ/1,000 ML BAG IV SCH (19:32)
[2022-01-17 20:36] LABS: BUN Creatinine Ratio 26.3 (10-20); Calcium 8.5 mg/dl (8.5-10.1); Creatinine Clr Calc Pharmacy 122.9 ml/min; Est GFR (African American) 106.4 ml/min; Est GFR (Non-African American) 91.8 ml/min; Potassium 3.5 mmol/L (3.5-5.1)
[2022-01-17] MEDS: ENOXAPARIN INJ 40 MG/0.4 ML SYR SQ SCH (20:47)
[2022-01-17] MEDS: LANTUS PER UNIT CHARGE SQ SCH (21:21)
[2022-01-18] MEDS: INSULIN ASPART PER UNIT SC SCH ×5 (00:21→20:53)
[2022-01-18] MEDS: D5W AND 1/2NSS + 20MEQ KCL 20 MEQ/1,000 ML BAG IV SCH ×4 (02:01→22:42)
--- NOTE | 2022-01-18 02:26 | Communication Note ---
Date of Service: January 18, 2022 Asked to evaluate patient due to feeling of abdominal distention. Denies pain. No nausea. No chest pain or shortness of breath. He had 350 out from his NGT at time of initial check, though most of the drainage was clear per RN. Exam - Pleasant, YOSI. CPAP at bedside, NGT in place. Abdomen - Abdomen is moderately distended without tenderness to palpation. No rebound/guarding. The epigastrium is tympanic. Worsening abdominal distention - suspect resolving SBO, possibly with component of gastric distention from CPAP. No red flags on exam. Given subjective reports of worsening discomfort and distention, will check CXR/KUB . Maintain NGT settings for now. Output is reasonable throughout the evening.
[2022-01-18 06:17] LABS: Basophils # (auto) 0.04 K/uL (0-0.2); Basophils % (auto) 0.6 %; Eosinophils # (auto) 0.12 K/uL (0-0.50); Eosinophils % (auto) 1.7 %; Hematocrit (blood only) 40.6 % (40.1-51.0); Hemoglobin 13.9 g/dl (14.0-18.0); Immature Granulocytes # (auto) 0.07 K/uL (0.00-0.02); Lymphocytes # (auto) 1.47 K/uL (1.2-3.4); Lymphocytes % (auto) 21.1 %; Mean Corpuscular Hemoglobin 30.5 pg (25.0-34.0); Mean Corpuscular Hgb Conc 34.2 g/dL (32.0-36.0); Mean Corpuscular Volume 89.2 fL (80.0-100.0); Monocytes # (auto) 0.89 K/uL (0.24-0.82); Monocytes % (auto) 12.8 %; Neutrophils # (auto) 4.39 K/uL (1.4-6.5); Neutrophils % (auto) 62.8 %; Platelet Count 215 K/uL (130-400); RDW Coefficient of Variation 13.3 % (11.5-14.5); RDW Standard Deviation 43.8 fL (36.4-46.3); Red Blood Count 4.55 M/uL (4.63-6.08); White Blood Count 6.98 K/ul (4.8-10.8)
[2022-01-18 06:38] LABS: Albumin Globulin Ratio 1.4 (0.9-2); Albumin Level 3.6 gm/dl (3.4-5.0); BUN Creatinine Ratio 23.9 (10-20); Bilirubin,Total 0.4 mg/dl (0.2-1.0); Calcium 8.1 mg/dl (8.5-10.1); Creatinine Clr Calc Pharmacy 138.4 ml/min; Est GFR (African American) 111.7 ml/min; Est GFR (Non-African American) 96.4 ml/min; Globulin 2.5 gm/dl (2.5-4.0); Magnesium 1.8 mg/dl (1.7-2.4); Potassium 3.2 mmol/L (3.5-5.1); Total Protein 6.1 gm/dl (6.0-8.3)
--- NOTE | 2022-01-18 07:19 | XRay Report ---
XR chest 1V portable CLINICAL HISTORY: Abdominal distention, NGT placement COMPARISON STUDY: Chest radiograph and chest CT July 06, 2021. FINDINGS: The tip of the nasogastric tube is within the gastric fundus. There is no pneumothorax or p leural effusion. Cardiomediastinal silhouette is stable. There is no evidence for pulmonary edema. IMPRESSION: 1. Tip of nasogastric tube within the gastric fundus. 2. No acute cardiopulmonary findings. ACT 112: Negative or not required by law. Electronically signed by: Erwin Calvillo M.D. 01/18/2022 7:18 AM
[2022-01-18 07:20] LABS: Estimated Average Glucose 160 mg/dl; Hemoglobin A1C 7.2 % (4.5-5.6)
[2022-01-18] MEDS: FAMOTIDINE 20 MG in SYRINGE 3 ML IV SCH ×2 (09:09→20:42)
--- NOTE | 2022-01-18 10:21 | XRay Report ---
KUB HISTORY: Acute generalized abdominal pain with distention progressing abd distention, NGT in place, alsoCPAP COMPARISON: KUB and CT abdomen and pelvis studies 01/16/2022 FINDINGS: Distal tip enteric tube projects over the gastric fundus with side port in the gastric card ia. Cholecystectomy. Pelvic basin phleboliths. Persistent small bowel obstruction. Dilated air-filled loops of small bowel measure up to approximately 6.7 cm. Degree of small bowel distention appears si milar to mildly improved from the comparison CT exam. Air and stool is also noted within the large [place] wel. No renal calculi. No ureteral calculi. No pneumoperitoneum or pneumatosis. No fracture. IMPRESSION: 1. Persistent small bowel obstruction. 2. Distal tip of enteric tube projects over the gastric fundus. ACT 112: Negative or not required by law. The above report was generated using voice recognition software. It may contain grammatical, syntax o r spelling errors. Electronically signed by: Daquan Mckeon M.D. 01/18/2022 10:20 AM
[2022-01-18] MEDS ORDERED: Nursing to Pharmacy Communication SCH (16:30)
[2022-01-18] MEDS: SIMETHICONE 80 MG CHEW PO SCH ×2 (17:18→20:03)
--- NOTE | 2022-01-18 18:47 | Hospitalist Progress Note ---
Date of Service January 18, 2022 Assessment & Plan (1) SBO (small bowel obstruction): Plan: High-grade SBO/transition point mid abdomen- NG tube clamped this morning. No significant recurrence in his symptoms therefore can now be removed. Diet to be advanced to clears for dinner. Zofran 4 mg IV every 6 hours as needed Famotidine 20 mg IV every 12 hours Continue intravenous fluids overnight, can be discontinued in the morning if he is tolerating clears. Acetaminophen 1 g IV every 8 hours as needed mild pain or fever Toradol 15 mg IV every 6 hours as needed moderate pain Start simethicone before meals and at bedtime for abdominal bloating. Can be discontinued if having any discomfort from this. (2) Hypokalemia: Plan: Potassium up to 3.2 this morning. He will continue on 20meq KCl via his IV fluids at 100 mL/h (3) ADHD: Plan: Hold Adderall while n.p.o. (4) Sleep apnea: Plan: Avoid CPAP as the specimen making his abdominal distention worse. (5) Depression: Plan: Depression/anxiety/insomnia- Restart bupropion and sertraline in a.m. Will consider restarting temazepam tomorrow. (6) Anxiety: Plan: See above (7) Diabetes mellitus, type 2: Plan: HbA1c 7.2 While n.p.o., hold empagliflozin, pioglitazone and Ozempic Continue on reduced dose of Lantus from 50 units to 20 units, will consider twice daily dosing tomorrow if his morning glucose values are elevated NovoLog to take the place of Ozempic and his other oral medication: --Goal BSG Range: Low 100_mg/dL, High 150_mg/dL --Correction Factor: 30_mg/dL/unit --Carbohydrate ratio = 15__ g/unit --BSGs ACHS if eating, q6h if npo (8) Hypertension: Plan: Hold HCTZ Restart losartan 100 mg p.o. every morning tomorrow (9) Hyperlipidemia: Plan: Restart atorvastatin 10 mg p.o. every morning tomorrow Plan VTE prophylaxis -Lovenox subcu 40 mg daily Diet -clear liquids, type 2 diabetes Disposition -continued admission on [facility], possible discharge in the next 1 to 2 days depending on clinical course Admission and Anticipated Discharge Date Admission Date: January 16, 2022 Subjective Significant events overnight as he used his CPAP which caused a lot of abdominal distention. His NG tube also appeared to be blocked and with manipulation this morning it started draining again. Significant output through his NG tube although he has been on ice chips and sips and the output appears much more clear than bile. Passing a lot of flatus. Patient was reviewed in the afternoon after NG tube was clamped since the morning. He denies any worsening abdominal pain, nausea, vomiting. He had a bowel movement earlier today. Wishes to be advanced to clears for supper. Review of Systems Review of Systems: All systems reviewed & are unremarkable except as noted in Subjective Physical Exam Constitutional: WD/WN, vitals as above Respiratory: normal respiratory effort, lungs clear to auscultation Cardiovascular: RRR, no murmur, no edema Gastrointestinal (Abdomen): Inspection/Auscultation: + hypoactive bowel sounds; abdomen not distended Percussion/Palpation: abdomen soft; abdomen nontender, no guarding and abdomen not rigid Neurologic: moves all extremities and awake; not confused Psychiatric: A+Ox3, euthymic affect Results & Data Results & Data ([facility]) Vital Signs (Past 12 Hours) Vital Signs Temp Pulse Resp BP Pulse Ox O2 Del Method 01/18/22 15:47 36.8 C 94 H 16 130/64 95 Room Air 01/18/22 08:03 36.9 C 96 H 20 135/75 97 Room Air PG Care Time/CCT Total # of Minutes Spent Total Time Spent with Patient: Total time spent is greater than 50% in coordination of care (as documented) at patient's floor/unit and/or counseling patient: Coding Level of Care Code 32328 Subseq Hosp Care Lvl 2 Diagnoses SBO (small bowel obstruction) K56.609 Hypokalemia E87.6 ADHD F90.9 Sleep apnea G47.30 Depression F32.9 Anxiety F41.9 Diabetes mellitus, type 2 E11.9 Hypertension I10 Hyperlipidemia E78.5
[2022-01-18] MEDS: ENOXAPARIN INJ 40 MG/0.4 ML SYR SQ SCH (20:03)
[2022-01-18] MEDS: LANTUS PER UNIT CHARGE SQ SCH (20:52)
[2022-01-19] MEDS: D5W AND 1/2NSS + 20MEQ KCL 20 MEQ/1,000 ML BAG IV SCH (05:11)
[2022-01-19] MEDS: FAMOTIDINE 20 MG in SYRINGE 3 ML IV SCH (08:00)
[2022-01-19] MEDS: SIMETHICONE 80 MG CHEW PO SCH ×2 (08:00→11:44)
[2022-01-19] MEDS ORDERED: ASPIRIN 81 MG ECTAB PO SCH (09:00)
[2022-01-19] MEDS ORDERED: ATORVASTATIN 10 MG TAB PO SCH (09:00)
[2022-01-19] MEDS ORDERED: LOSARTAN POTASSIUM 50 MG TAB PO SCH (09:00)
[2022-01-19] MEDS ORDERED: SERTRALINE HCL 100 MG TABLET PO SCH (09:00)
[2022-01-19] MEDS ORDERED: buPROPion XL 300 MG TABCR PO SCH (09:00)
[2022-01-19] MEDS: INSULIN ASPART PER UNIT SC SCH ×2 (09:08→13:45)
[2022-01-19 10:48] LABS: Basophils # (auto) 0.05 K/uL (0-0.2); Basophils % (auto) 0.8 %; Eosinophils # (auto) 0.12 K/uL (0-0.50); Eosinophils % (auto) 1.9 %; Hematocrit (blood only) 41.3 % (40.1-51.0); Hemoglobin 14.1 g/dl (14.0-18.0); Immature Granulocytes % (auto) 1.6 %; Lymphocytes # (auto) 1.41 K/uL (1.2-3.4); Lymphocytes % (auto) 22.2 %; Mean Corpuscular Hemoglobin 30.4 pg (25.0-34.0); Mean Corpuscular Hgb Conc 34.1 g/dL (32.0-36.0); Mean Platelet Volume 9.2 fL (9.4-12.4); Monocytes # (auto) 0.77 K/uL (0.24-0.82); Monocytes % (auto) 12.1 %; Neutrophils % (auto) 61.4 %; Platelet Count 218 K/uL (130-400); RDW Coefficient of Variation 13.5 % (11.5-14.5); RDW Standard Deviation 43.9 fL (36.4-46.3); Red Blood Count 4.64 M/uL (4.63-6.08); White Blood Count 6.35 K/ul (4.8-10.8)
[2022-01-19 11:21] LABS: Albumin Globulin Ratio 1.4 (0.9-2); Albumin Level 3.7 gm/dl (3.4-5.0); BUN Creatinine Ratio 11.8 (10-20); Bilirubin,Total 0.4 mg/dl (0.2-1.0); Calcium 8.5 mg/dl (8.5-10.1); Creatinine Clr Calc Pharmacy 144.5 ml/min; Est GFR (African American) 113.7 ml/min; Est GFR (Non-African American) 98.1 ml/min; Globulin 2.6 gm/dl (2.5-4.0); Magnesium 1.9 mg/dl (1.7-2.4); Potassium 3.3 mmol/L (3.5-5.1); Total Protein 6.3 gm/dl (6.0-8.3)
[2022-01-19] MEDS ORDERED: POTASSIUM CHLORIDE CRTAB 20 MEQ TABCR PO STA (11:34)
--- NOTE | 2022-01-19 14:55 | Discharge Summary ---
Date of Service January 19, 2022 Admission HPI Per Admitting Provider The patient is a 66-year-old male with a past medical history including colon polyps, spinal stenosis, acute appendicitis requiring surgery, acute gastroenteritis, mild cognitive impairment, ADHD, sleep apnea, hyperlipidemia, depression, diabetes mellitus, hypertension, anxiety and insomnia. He presents to the emergency department with persistent abdominal pain, nausea and vomiting as noted above. Work-up in the emergency department included a CT scan of abdomen and pelvis, which showed a high-grade small bowel obstruction with transition point in the mid abdomen. Principal Diagnosis Small bowel obstruction Discharge Exam Tolerating full liquid diet. No nausea, vomiting, abdominal pain. Passing flatus. Bowel movement yesterday. Constitutional WD/WN, vitals as above Respiratory normal respiratory effort, lungs clear to auscultation Cardiovascular RRR, no murmur, no edema Gastrointestinal (Abdomen) Inspection/Auscultation: normal bowel sounds; abdomen not distended Percussion/Palpation: abdomen soft; abdomen nontender, no guarding and abdomen not rigid Neurologic moves all extremities and awake; not confused Psychiatric A+Ox3, euthymic affect Discharge Data Allergies Allergy/AdvReac Type Severity Reaction Status Date / Time bee venom protein (honey bee) Allergy Severe EXTRA Verified 01/16/22 22:00 SWELLING AT SITES Consultations 01/16/22 21:52 ED Decision to Admit Stat Ordered Studies 01/16/22 19:44 CT abd pelvis wo con Stat IMPRESSION: 1. High-grade small bowel obstruction. A transition point is seen in the midabdomen and this is likely related to adhesions. 2. Intraloop fluid is noted. There is no intraperitoneal free air, pneumatosis intestinalis, or portal venous gas. No focally thick-walled bowel loops are identified. 3. There are numerous gallstones present within a cystic duct remnant. 4. Advanced coronary artery calcification. 5. Additional findings as above. Hospital Course (1) SBO (small bowel obstruction): Chino Urrutia is a 66 year old male admitted to [facility] from January 16 to 2021 due to abdominal pain, nausea, vomiting. He was diagnosed with high-grade small bowel obstruction clinically and on CT scan most likely due to adhesions. This was treated with NG tube, bowel rest, intravenous fluids, pain and antiemetics. NG tube was removed on January 18 and his diet was advanced to full liquids without recurrence of any symptoms. He will continue on full liquid diet for the next 24 hours then advance to low fiber until follow-up with his primary care physician. He will reduce Lantus to 25 units daily while on full liquid diet - he was receiving 20 units daily in hospital with good glucose control without Actos or Jardiance. Jardiance and Actos can be resumed tomorrow. As his diet returns to normal recommend resuming his usual Lantus dosing as long as he is having no hypoglycemia. He recently started Ozempic and despite no literature found for this causing small bowel obstruction it certainly can cause abdominal pain, nausea and vomiting therefore he was advised to hold this until primary care follow up and can likely be resumed if doing well at that time. He was also noted to have incidental significant coronary artery calcification on CT. Noted dobutamine stress echocardiogram in 2019 was normal however if having any chest pains or shortness of breath on exertion recommend referral to cardiology for this. Also incidentally noted on CT his prostate was mildly enlarged with bladder thickening suggestive of chronic outlet obstruction. He was advised to follow up with his primary care provider if having any BPH symptoms. His potassium has been low during his inpatient stay - treated with intravenous and oral supplementation. Likely due to a combination of vomiting and HCTZ. HCTZ was held but can be resumed on discharge. Consider repeat potassium levels on follow up. (2) Hypokalemia: (3) ADHD: (4) Sleep apnea: (5) Depression: (6) Anxiety: (7) Diabetes mellitus, type 2: (8) Hypertension: (9) Hyperlipidemia: Total Time Total Time Spent Total Time Spent (In Minutes): 40 Discharge Plan Discharge Items Patient Disposition: Home - Self-Care Reason For Visit: SBO Discharge Diagnosis: Small bowel obstruction Activity: Resume your previous activity Non-emergency contact: Primary Care Provider Call non-emergency contact if: you have any medication questions and your symptoms worsen Follow-up/Referrals: Isiah Webster [Primary Care Provider] - 01/21/22 3:30 pm Diet: Other - See Diet Comment Diet Comment: Full liquid Addtl Attending Provider Instructions: You were admitted to [facility] from January 16 to 2021 due to abdominal pain, nausea, vomiting. You were diagnosed with high-grade small bowel obstruction diagnosed clinically and on CT scan most likely due to adhesions. This was treated with nasogastric (NG) tube, bowel rest, intravenous fluids, pain and antinausea medication. NG tube was removed on January 18 and your diet was advanced to full liquids without recurrence of any symptoms. Please continue on full liquid diet for the next 24 hours then advance to low fiber until follow-up with your primary care physician. While on a full liquid diet recommend reducing your Lantus dosing to 25 units daily - in the hospital you have been receiving 20 units daily with good glucose control without Actos or Jardiance. Jardiance and Actos can be resumed tomorrow. As your diet returns to normal recommend resuming your usual Lantus dosing as long as you do not have low glucose levels. Ozempic has no known side effect of causing small bowel obstruction however it can cause abdominal pain, nausea and vomiting therefore recommending holding this medication until you follow-up with your primary care physician. You also noted to have significant coronary artery calcification on CT. Please follow-up with your primary care physician for ongoing cardiovascular risk reduction. Noted your dobutamine stress echocardiogram in 2019 was normal however if you are having significant chest pains or shortness of breath on exertion recommend referral to cardiology for this. Prostate time was also mildly enlarged with bladder thickening suggestive of chronic outlet obstruction. If you are having symptoms of nighttime urination, urinary frequency, urgency, slow stream, straining to void recommend following up with your primary care physician for treatment of this. Your potassium has been low during your inpatient stay - treated with intravenous and oral supplementation. Some of this is due to vomiting and NG tube output but hydrochlorothiazide also causes low potassium levels. Recommend repeat labs when you follow-up with your primary care physician to continue to monitor your potassium levels. Pending Studies at Discharge: No Stand-Alone Forms: My [facility] [employer], Smoking Cessation Medications and DC Order Prescriptions: Continued losartan [Cozaar] 100 mg tablet 100 mg PO QAM hydrochlorothiazide 25 mg tablet 25 mg PO QAM Jardiance 10 mg tablet 10 mg PO QAM Centrum Silver Men 300-600-300 mcg tablet 1 tab PO QAM temazepam [Restoril] 30 mg capsule 60 mg PO HS atorvastatin [Lipitor] 10 mg Tablet 10 mg PO QAM aspirin [Marsha Low Dose Aspirin] 81 mg Tablet,Delayed Release (Dr/Ec) 81 mg PO QAM pioglitazone [Actos] 30 mg Tablet 30 mg PO QAM bupropion HCl [Wellbutrin XL] 300 mg Tablet Extended Release 24 Hr 300 mg PO QAM dextroamphetamine-amphetamine [Adderall] 30 mg Tablet 30 mg PO QAM insulin glargine [Lantus Solostar U-100 Insulin] 100 unit/mL (3 mL) Insulin Pen 50 unit SUBCUT PM Ozempic 1 mg/dose (4 mg/3 mL) pen injector 1 mg SUBCUT WK Rx Instructions: tuesday sertraline 100 mg tablet 100 mg PO QAM Discharge Orders: Discharge Order (Routine); Ordered 01/19/22 Ordered By: Jaiden Aguirre/Other Patient Handouts: Small Bowel Obstruction, Low-Fiber Diet, Managing Type 2 Diabetes, Full Liquid Diet Dc Admission Data Admit Date/Time: 01/16/22 23:38 Attending Provider: Jaiden Zarate Admit Provider: Bryan Don Primary Care Provider: Isiah Webster Other Providers: Bryan Don Other Interventions: Discharge Summary Assessment (RN) Last Done: 01/19/22 15:06 Coding Level of Care Code D/C DAY MANAGEMENT >30 MINS Diagnoses SBO (small bowel obstruction) K56.609 Hypokalemia E87.6 ADHD F90.9 Sleep apnea G47.30 Depression F32.9 Anxiety F41.9 Diabetes mellitus, type 2 E11.9 Hypertension I10 Hyperlipidemia E78.5
== END 2022-01-19 16:06 | disposition home or self-care (01) | DRG 389 ==
LOC: ED 19:33 → SUATTDRO 23:38 → 3N 23:38